=== PATIENT | female | born 1975 | race Caucasian/White ===

== ENCOUNTER 2016-03-18 14:07 | Emergency (ER) | payer MEDICAID, OTHER ==
[~2016-03-18] VITALS: Ht 160 cm; Wt 121.0 kg
[~2016-03-18 14:07] MED LIST: ATOR40TA68 PO; CARB200T92; GLIP-95 PO; LISI2.5T59 PO; [UNRECOGNIZED DRUG - CODE]
[2016-03-18 14:12] VITALS: Ht 160 cm; Wt 121.0 kg
[2016-03-18] MEDS ORDERED: LORAZEPAM 1 MG TAB PO ONE (17:00)
[2016-03-18] MEDS ORDERED: IBUPROFEN 800 MG TAB PO ONE (17:00)
--- NOTE | 2016-03-18 17:02 | ERD ---
ER Documentation Chief Complaint Date/Time DATE: 03/18/16 TIME: 17:00 Chief Complaint PT with " my seizure warnigns":nose tingly, twitching of mouth since 0700 HPI Patient is a 40-year-old female with seizures and diabetes who presents with the feeling of a seizure. The patient has "facial seizures and twitching" and feels like she may have one today. She says "it feels like a warning sign". It started at 7 AM and it has persisted. She takes her phenobarbital and Tegretol regularly and did not take it today. She admits to a headache in the posterior portion of the right side of her head which was gradual in onset. Upon review of old medical records she has multiple visits to the ER for various complaints. ROS All systems reviewed and are negative except as per history of present illness. Medications Home Meds Reported Medications Glipizide* (Glipizide*) 10 Mg Tablet, 10 MG PO AC BREAKFAST, TAB 12/30/15 Lisinopril* (Lisinopril*) 2.5 Mg Tablet, 2.5 MG PO DAILY, #30 TAB 12/30/15 Atorvastatin* (Atorvastatin*) 40 Mg Tablet, 40 MG PO QHS, #30 TAB 12/30/15 Carbamazepine (Tegretol) 200 Mg Tablet, 6 TAB QHS 02/17/11 Phenobarbital (Phenobarbital) 97.2 Mg Tablet, 2 TAB QHS 02/17/11 Allergies Allergies: Coded Allergies: cefaclor (Verified Allergy, Mild, 12/30/15) PMhx/Soc History of Surgery: Yes (cholecystectomy, carpal tunnel, bilateral) Anesthesia Reaction: No Hx Neurological Disorder: Yes (seizures) Hx Respiratory Disorders: No Hx Cardiac Disorders: Yes (htn, high cholesterol) Hx Psychiatric Problems: No Hx Miscellaneous Medical Probl: Yes (diabetes) Hx Alcohol Use: Yes (occasionally) Hx Substance Use: No Hx Tobacco Use: Yes (sometimes) FmHx Family History: diabetes Physical Exam Vitals Vital Signs Date Time Temp Pulse Resp B/P Pulse Ox O2 Delivery O2 Flow Rate FiO2 03/18/16 14:12 98.3 86 18 138/90 97 Physical Exam Const: No acute distress Head: Atraumatic Eyes: Normal Conjunctiva ENT: Normal External Ears, Nose and Mouth. Neck: Full range of motion..~ No meningismus. Resp: Clear to auscultation bilaterally Cardio: Regular rate and rhythm, no murmurs Abd: Soft, non tender, non distended. Normal bowel sounds Skin: No petechiae or rashes Back: No midline or flank tenderness Ext: No cyanosis, or edema Neur: Awake and alert, no slurred speech, no weakness of the upper or lower extremities, no seizure activity Psych: Normal Mood and Affect Results 24 hrs Laboratory Tests Test 03/18/16 16:55 Bedside Glucose 200mg/dL Current Medications Medications (Trade) Dose Ordered Sig/Armando Route PRN Reason Start Time Stop Time Status Last Admin Dose Admin Lorazepam (Ativan) 1 mg ONCE ONCE PO 03/18/16 17:00 03/18/16 17:01 Ibuprofen (Motrin) 800 mg ONCE ONCE PO 03/18/16 17:00 03/18/16 17:01 Procedures/MDM Accu-Chek is 200. Patient is a 40-year-old female with diabetes and seizures who presents with a feeling of an aura. At this point the patient has no seizure activity. The patient is well-appearing with stable vital signs and normal neurologic exam. I doubt hypo-or hyperglycemia. I doubt diabetic ketoacidosis. The patient was given Ativan to prevent seizure as well as ibuprofen for headache. I doubt intracranial mass or hemorrhage and I believe the risks of doing a CT scan of the brain outweigh the benefits. I doubt stroke. The patient can return for any worsening symptoms. Departure Diagnosis: Primary Impression: Aura Additional Impression: Numbness Condition: Fair Patient Instructions: Seizure, Recurrent [Adult] Referrals: Your doctor Additional Instructions: Call your primary care doctor TOMORROW for an appointment during the next 1-2 days.See the doctor sooner or return here if your condition worsens before your appointment time. EZEQUIEL MCKENZIE MD Mar 18, 2016 17:02
== END 2016-03-18 17:23 | disposition home or self-care (01) ==
LOC: E/R 14:07
DX: G43.109 Migraine with aura, not intractable, without status migrainosus (principal); R20.0 Anesthesia of skin; I10 Essential (primary) hypertension; E11.9 Type 2 diabetes mellitus without complications; Z72.0 Tobacco use; Z79.84 Long term (current) use of oral hypoglycemic drugs
CPT/HCPCS: 82962; Z7610; 99283

== ENCOUNTER 2016-05-21 16:35 | Emergency (ER) | payer OTHER ==
[~2016-05-21] VITALS: Ht 162.6 cm; Wt 120.5 kg
[2016-05-21 16:54] VITALS: Ht 162.6 cm; Wt 120.5 kg
[2016-05-21] MEDS ORDERED: KETOROLAC 30 MG INJ IM STA (18:59)
[2016-05-21 19:06] LABS: URINE BLOOD (Dip) POC Negative (NEGATIVE)
[2016-05-21 19:15] LABS: URINE BLOOD (Dip) POC Negative (NEGATIVE)
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
[2016-05-21] MEDS ORDERED: IBUP-1542 PO (20:36)
[2016-05-21] MEDS ORDERED: HYDR-906 PO (20:36)
[2016-05-21 20:51] VITALS: BP 134/87; PULSE 60; RESP 18; TEMP 97.2
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
== END 2016-05-21 20:51 | disposition home or self-care (01) ==
LOC: FTE 16:35
DX: T14.8 Other injury of unspecified body region (principal); I10 Essential (primary) hypertension; E11.9 Type 2 diabetes mellitus without complications; R51 Headache; V43.52XA Car driver injured in collision with other type car in traffic accident, initial encounter; Z79.84 Long term (current) use of oral hypoglycemic drugs
CPT/HCPCS: 70450; 71010; 71100; 73000; 73030; 81003; J1885; 96372

== ENCOUNTER 2016-08-08 00:36 | Emergency (ER) | payer OTHER ==
[~2016-08-08] VITALS: Ht 162.6 cm; Wt 124.0 kg
[~2016-08-08 00:36] MED LIST changes: +HYDR-906 PO; +IBUP-1542 PO
[2016-08-08 00:55] VITALS: Ht 162.6 cm; Wt 124.0 kg
[2016-08-08 02:38] LABS: URINE BLOOD (Dip) POC 2+ (NEGATIVE)
[2016-08-08 04:19] LABS: ADD SCAN DIFF NO
[2016-08-08 04:22] LABS: BASOPHILS % 0.4 % (0.0-2.0); EOSINOPHILS # 0.2 10^3/ul (0.0-0.5); HEMATOCRIT 34.6 % (37.0-47.0); LYMPHOCYTES # 2.8 10^3/ul (0.8-2.9); LYMPHOCYTES % 32.8 % (15.0-51.0); MEAN CORPUSCULAR HEMOGLOBIN 30.5 pg (29.0-33.0); MEAN CORPUSCULAR HGB CONC 34.7 g/dl (32.0-37.0); MEAN CORPUSCULAR VOLUME 87.8 fl (82.0-101.0); MONOCYTE # 0.5 10^3/ul (0.3-0.9); MONOCYTES % 6.2 % (0.0-11.0); NEUTROPHILS % 58.4 % (39.0-77.0); PLATELET COUNT 194 10^3/UL (140-415); RED BLOOD COUNT 3.94 10^6/ul (4.20-5.40); RED CELL DISTRIBUTION WIDTH 12.1 % (11.5-14.5); WHITE BLOOD COUNT 8.5 10^3/ul (4.8-10.8)
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
[2016-08-08 04:35] LABS: INR 0.99; PROTIME 13.1 Sec (12.2-14.2)
[2016-08-08 04:36] LABS: PARTIAL THROMBOPLASTIN TIME 28.4 Sec (25.0-35.0)
[2016-08-08 04:37] LABS: ANION GAP 13 (8-16); BLOOD UREA NITROGEN 14 mg/dl (7-20); CALCIUM 8.8 mg/dl (8.4-10.2); CARBON DIOXIDE 27 mmol/L (21-31); CHLORIDE 109 mmol/L (97-110); CREATININE 0.64 mg/dl (0.44-1.00); GLUCOSE 87 mg/dl (70-220); POTASSIUM 3.6 mmol/L (3.5-5.1); SODIUM 145 mmol/L (135-144)
--- NOTE | 2016-08-08 04:48 | ERA ---
ER Documentation Chief Complaint Date/Time DATE: 08/08/16 Chief Complaint chest pain since 4 hours ago HPI The patient is a 40-year-old female, presenting to the ER because of minimal right-sided chest pain that began about 8 PM, worse with movement, intermittent , denies any chest pain now. She denies any fever, chills, cough, chest pain with exertion or vomiting or diaphoresis, dyspnea, abdominal pain, vomiting, dysuria. She does not smoke nor drink, denies any recent traveling, has a lot of stress in her life at this time. Past medical history: Diabetes mellitus, seizure disorder, hypertension Past surgical history: Bilateral carpal tunnel surgery, cholecystectomy ROS All systems reviewed and are negative except as per history of present illness. Medications Home Meds Active Scripts Ibuprofen* (Ibuprofen*) 600 Mg Tablet, 600 MG PO Q6H Y for PAIN, #20 TAB Prov:ÁLVARO KING MD 08/08/16 Sulfamethoxazole/Trimethoprim* (Bactrim Ds* Tablet) 1 Each Tablet, 1 TAB PO BID , #14 TAB Prov:ÁLVARO KING MD 08/08/16 Hydrocodone/Acetaminophen (Lamoni 5-325 Tablet) 1 Each Tablet, 1 TAB PO Q6H Y for PAIN, #10 TAB Prov:HERBERT MOORE 05/21/16 Ibuprofen* (Motrin*) 600 Mg Tab, 600 MG PO Q6H Y for PAIN AND OR ELEVATED TEMP, #30 TAB Prov:HERBERT MOORE 05/21/16 Reported Medications Glipizide* (Glipizide*) 10 Mg Tablet, 10 MG PO AC BREAKFAST, TAB 12/30/15 Lisinopril* (Lisinopril*) 2.5 Mg Tablet, 2.5 MG PO DAILY, #30 TAB 12/30/15 Atorvastatin* (Atorvastatin*) 40 Mg Tablet, 40 MG PO QHS, #30 TAB 12/30/15 Carbamazepine (Tegretol) 200 Mg Tablet, 6 TAB QHS 02/17/11 Phenobarbital (Phenobarbital) 97.2 Mg Tablet, 2 TAB QHS 02/17/11 Allergies Allergies: Coded Allergies: cefaclor (Verified Allergy, Mild, 12/30/15) PMhx/Soc History of Surgery: Yes (cholecystectomy, carpal tunnel, bilateral) Anesthesia Reaction: No Hx Neurological Disorder: Yes (seizures) Hx Respiratory Disorders: No Hx Cardiac Disorders: Yes (htn, high cholesterol) Hx Psychiatric Problems: No Hx Miscellaneous Medical Probl: Yes (diabetes) Hx Alcohol Use: No Hx Substance Use: No Hx Tobacco Use: No Smoking Status: Never smoker Physical Exam Vitals Vital Signs Date Time Temp Pulse Resp B/P Pulse Ox O2 Delivery O2 Flow Rate FiO2 08/08/16 05:17 59 16 104/62 100 Room Air 08/08/16 03:24 62 16 99/83 96 Room Air 08/08/16 03:23 Nasal Cannula 3 08/08/16 00:55 97.8 88 20 131/83 98 Physical Exam Const: No acute distress. Head: Atraumatic. Eyes: Normal Conjunctiva. ENT: Normal External Ears, Nose and Mouth. Neck: Full range of motion. No meningismus. Chest: Mild right-sided chest tenderness with palpation, no crepitus Resp: Clear to auscultation bilaterally. Cardio: Regular rate and rhythm. Abd: Soft, non distended, normal bowel sounds, non tender. Skin: No petechiae or rashes. Back: No midline or flank tenderness. Ext: No cyanosis, or edema. Neur: Awake and alert. No focal deficit Psych: Normal Mood and Affect. Result Diagram: 08/08/1641008/08/16410 Results 24 hrs Laboratory Tests Test 08/08/16 02:40 08/08/16 04:11 Bedside Urine pH (LAB) 6.5 Bedside Urine Protein (LAB) 2+ Bedside Urine Glucose (UA) 0.1% Bedside Urine Ketones (LAB) Trace Bedside Urine Blood 2+ Bedside Urine Nitrite (LAB) Positive Bedside Urine Leukocyte Esterase (L Negative White Blood Count 8.510^3/ul Red Blood Count 3.9410^6/ul Hemoglobin 12.0g/dl Hematocrit 34.6% Mean Corpuscular Volume 87.8fl Mean Corpuscular Hemoglobin 30.5pg Mean Corpuscular Hemoglobin Concent 34.7g/dl Red Cell Distribution Width 12.1% Platelet Count 55245^3/UL Mean Platelet Volume 10.0fl Neutrophils % 58.4% Lymphocytes % 32.8% Monocytes % 6.2% Eosinophils % 2.0% Basophils % 0.4% Nucleated Red Blood Cells % 0.0/100WBC Neutrophils # 5.010^3/ul Lymphocytes # 2.810^3/ul Monocytes # 0.510^3/ul Eosinophils # 0.210^3/ul Basophils # 0.010^3/ul Nucleated Red Blood Cells # 0.010^3/ul Prothrombin Time 13.1Sec Prothrombin Time Ratio 1.0 INR International Normalized Ratio 0.99 Activated Partial Thromboplast Time 28.4Sec Sodium Level 145mmol/L Potassium Level 3.6mmol/L Chloride Level 109mmol/L Carbon Dioxide Level 27mmol/L Anion Gap 13 Blood Urea Nitrogen 14mg/dl Creatinine 0.64mg/dl Glucose Level 87mg/dl Calcium Level 8.8mg/dl Troponin I < 0.012ng/ml Procedures/[place] [id number] Radiology Main Line: [phone] DIAGNOSTIC IMAGING REPORT Patient: OMERO MCCONNELL : 1975 Age: 40 Sex: F MR #: [id number] DOS: 08/08/16 [facility] Ordering MD: ÁLVARO KING MD Location: E/R Room/Bed: PROCEDURE: CHEST - 1 VIEW CLINICAL INDICATION: 40-year-old female with chest pain. TECHNIQUE: A single frontal AP upright portable view of the chest was performed. The images were reviewed on a PACS workstation. COMPARISON: Chest x-ray May 21, 2016 FINDINGS: The cardiomediastinal silhouette is mildly enlarged but without significant change. There is elevation right hemidiaphragm. There is mild right basilar subsegmental atelectasis. There is no evidence for an infiltrate. There is no evidence for congestive heart failure. There is no evidence for pneumothorax. The osseous structures are intact. IMPRESSION: 1. Mild cardiomegaly. 2. Elevated right hemidiaphragm. 3. Mild right basilar subsegmental atelectasis. .Brando Wyatt MD, MD Date Time Electronically viewed and signed by .Brando Wyatt MD, on 08/08/2016 04:33 .M/ CC: ÁLVARO KING MD EKG: Read by emergency physician Rate/Rhythm: Normal Sinus Rhythm 68 beats/min QRS, ST, T-waves: No ST elevation, no T inversion, nonspecific T abnormality Impression: Abnormal EKG MEDICAL MAKING DECISION: The patient is a 40-year-old female, presenting with acute chest pain most likely musculoskeletal pain, acute cystitis. She remained well emergency department and did not have any recurrent symptoms The differential diagnoses considered include but are not limited to acute coronary syndrome, acute myocardial infarction, pericarditis, pulmonary embolism , aortic dissection, pneumonia, pleural effusion, pneumothorax, GERD, chest wall pain. Departure Diagnosis: Primary Impression: Chest pain Additional Impression: UTI (urinary tract infection) Condition: Good Comments She was discharged with Bactrim DS and Motrin I discussed the findings with the patient. I advised the patient to follow-up with the primary physician in about 1-2 days, sooner if needed and return if any concern. ÁLVARO KING MD Aug 08, 2016 04:47
[2016-08-08 04:49] LABS: TROPONIN-I < 0.012 ng/ml (0.00-0.12)
[2016-08-08 05:17] VITALS: BP 104/62; PULSE 59; RESP 16
[2016-08-08] MEDS ORDERED: IBUP-1542 PO (05:23)
[2016-08-08] MEDS ORDERED: SULF1TAB31 PO (05:23)
== END 2016-08-08 05:32 | disposition home or self-care (01) ==
LOC: E/R 00:36
DX: R07.9 Chest pain, unspecified (principal); N39.0 Urinary tract infection, site not specified; E11.9 Type 2 diabetes mellitus without complications; I10 Essential (primary) hypertension; Z79.84 Long term (current) use of oral hypoglycemic drugs
CPT/HCPCS: 36415; 71010; 80048; 81003; 84484; 85025; 85610; 85730; Z7502; 93005

== ENCOUNTER 2016-11-09 19:33 | Emergency (ER) | payer OTHER ==
[~2016-11-09] VITALS: Ht 162.6 cm; Wt 122.7 kg
[~2016-11-09 19:33] MED LIST changes: +SULF1TAB31 PO
[2016-11-09 20:06] VITALS: Ht 162.6 cm; Wt 122.7 kg
[2016-11-09] MEDS ORDERED: CLIN-73 PO (21:18)
[2016-11-09] MEDS ORDERED: IBUP-1542 PO (21:18)
--- NOTE | 2016-11-09 21:28 | ERD ---
ER Documentation Chief Complaint Date/Time DATE: 11/09/16 TIME: 21:22 Chief Complaint LT 3RD FINGER PAIN/SWELLING FROM PULLING OUT A HANG NAIL ON WEDNESDAY. HPI 41-year-old in emergency department for complaints of swelling on the right side of left fourth finger nail after trying to remove a skin tag. Patient removed the skin, started to have redness and swelling afterwards. Patient describes the pain as sharp pain, 6/10 scale, was upon touching the area. Patient did not take any medications to help with symptoms. Patient denies any numbness or tingling. Patient denies any direct trauma in affected area. Patient is diabetic. ROS All systems reviewed and are negative except as per history of present illness. Medications Home Meds Active Scripts Ibuprofen* (Motrin*) 600 Mg Tab, 600 MG PO Q6H Y for PAIN AND OR ELEVATED TEMP, #30 TAB Prov:JULIETTE SANTACRUZ NP 11/09/16 Clindamycin Hcl* (Clindamycin Hcl*) 300 Mg Capsule, 300 MG PO TID for 10 Days, CAP Prov:JULIETTE SANTACRUZ NP 11/09/16 Ibuprofen* (Ibuprofen*) 600 Mg Tablet, 600 MG PO Q6H Y for PAIN, #20 TAB Prov:ÁLVARO KING MD 08/08/16 Sulfamethoxazole/Trimethoprim* (Bactrim Ds* Tablet) 1 Each Tablet, 1 TAB PO BID , #14 TAB Prov:ÁLVARO KING MD 08/08/16 Hydrocodone/Acetaminophen ([place] 5-325 Tablet) 1 Each Tablet, 1 TAB PO Q6H Y for PAIN, #10 TAB Prov:HERBERT MOORE 05/21/16 Ibuprofen* (Motrin*) 600 Mg Tab, 600 MG PO Q6H Y for PAIN AND OR ELEVATED TEMP, #30 TAB Prov:HERBERT MOORE 05/21/16 Reported Medications Glipizide* (Glipizide*) 10 Mg Tablet, 10 MG PO AC BREAKFAST, TAB 12/30/15 Lisinopril* (Lisinopril*) 2.5 Mg Tablet, 2.5 MG PO DAILY, #30 TAB 12/30/15 Atorvastatin* (Atorvastatin*) 40 Mg Tablet, 40 MG PO QHS, #30 TAB 12/30/15 Carbamazepine (Tegretol) 200 Mg Tablet, 6 TAB QHS 02/17/11 Phenobarbital (Phenobarbital) 97.2 Mg Tablet, 2 TAB QHS 02/17/11 Allergies Allergies: Coded Allergies: cefaclor (Verified Allergy, Mild, 11/09/16) PMhx/Soc History of Surgery: Yes (cholecystectomy, carpal tunnel, bilateral) Anesthesia Reaction: No Hx Neurological Disorder: Yes (seizures) Hx Respiratory Disorders: No Hx Cardiac Disorders: Yes (htn, high cholesterol) Hx Psychiatric Problems: No Hx Miscellaneous Medical Probl: Yes (diabetes) Hx Alcohol Use: No Hx Substance Use: No Hx Tobacco Use: No Smoking Status: Never smoker FmHx Family History: No coronary disease, No diabetes, No other Physical Exam Vitals Vital Signs Date Time Temp Pulse Resp B/P Pulse Ox O2 Delivery O2 Flow Rate FiO2 11/09/16 20:06 99.2 83 18 123/78 97 Physical Exam GENERAL: The patient is well developed and appropriate for usual state of health, in no apparent distress. CHEST: Clear to auscultation bilaterally. There are no rales, wheezes or rhonchi. HEART: Regular rate and rhythm. No murmurs, clicks, rubs or gallops. No S3 or S4. ABDOMEN: Soft, nontender and nondistended. Good bowel sounds. No rebound or guarding. No gross peritonitis. No gross organomegaly or masses. No Stuart sign or McBurney point tenderness. BACK: No midline or flank tenderness. EXTREMITIES: Equal pulses bilaterally. There is no peripheral clubbing, cyanosis or edema. No focal swelling or erythema. Full range of motion. Grossly neurovascularly intact. NEURO: Alert and oriented. Cranial nerves 2-12 intact. Motor strength in all 4 extremities with 5/5 strength. Sensation grossly intact. Normal speech and gait. SKIN: Redness and swelling on the right side of the left fourth finger nail. Swelling noted, no fluctuance noted. There is no apparent rash or petechia. The skin is warm and dry. HEMATOLOGIC AND LYMPHATIC: There is no evidence of excessive bruising or lymphedema. No gross cervical, axillary, or inguinal lymphadenopathy. Procedures/MDM Medical decision making: Patient symptoms most likely is consistent with paronychia. At this time, incision and drainage not indicated at this time. No symptoms of any neurovascular compromise. No trauma in affected area. Patient is diabetic, will be treated with antibiotics, was given clindamycin and ibuprofen, patient was advised to return to emergency department for any worsening symptoms. Follow-up with primary care doctor in 2 days for reevaluation of symptoms. Disposition: Home. Stable. Departure Diagnosis: Primary Impression: Paronychia Condition: Stable Patient Instructions: JULIETTE Olmos NP Nov 09, 2016 21:28
[2016-11-09 21:47] VITALS: BP 120/80; PULSE 66; RESP 20; TEMP 99.2
== END 2016-11-09 21:48 | disposition home or self-care (01) ==
LOC: FTE 19:33
DX: L03.012 Cellulitis of left finger (principal); I10 Essential (primary) hypertension; E11.9 Type 2 diabetes mellitus without complications; Z79.84 Long term (current) use of oral hypoglycemic drugs
CPT/HCPCS: 99283

== ENCOUNTER 2017-01-02 19:50 | Emergency (ER) | payer OTHER ==
[~2017-01-02] VITALS: Ht 165.1 cm; Wt 127.4 kg
[~2017-01-02 19:50] MED LIST changes: +CLIN-73 PO
[2017-01-02 19:53] VITALS: Ht 165.1 cm; Wt 127.4 kg
--- NOTE | 2017-01-02 20:55 | ERD ---
ER Documentation Chief Complaint Chief Complaint left eye pain/redness x 3 days HPI This 41-year-old female presents to emergency department for left lower eye lid erythema tender to palpation with green charge, denies change in vision injury, patient reports that she has been in and out of hospitals lately that her father is going through chemotherapy. Denies any known contacts with anyone being treated for conjunctivitis. ROS All systems reviewed and are negative except as per history of present illness. Medications Home Meds Active Scripts Sulfacetamide Sodium* (Bleph-10*) 10% - 3.5 Gm Opht Oint...g., 1 APPLIC LEFT EYE QID for 7 Days, #1 TUB Prov:BRENTONMARYALEXANDRA 01/02/17 Ibuprofen* (Motrin*) 600 Mg Tab, 600 MG PO Q6H Y for PAIN AND OR ELEVATED TEMP, #30 TAB Prov:JULIETTE SANTACRUZ NP 11/09/16 Clindamycin Hcl* (Clindamycin Hcl*) 300 Mg Capsule, 300 MG PO TID for 10 Days, CAP Prov:JULIETTE SANTACRUZ NP 11/09/16 Ibuprofen* (Ibuprofen*) 600 Mg Tablet, 600 MG PO Q6H Y for PAIN, #20 TAB Prov:ÁLVARO KING MD 08/08/16 Sulfamethoxazole/Trimethoprim* (Bactrim Ds* Tablet) 1 Each Tablet, 1 TAB PO BID , #14 TAB Prov:ÁLVARO KING MD 08/08/16 Hydrocodone/Acetaminophen (Piru 5-325 Tablet) 1 Each Tablet, 1 TAB PO Q6H Y for PAIN, #10 TAB Prov:HERBERT MOORE 05/21/16 Ibuprofen* (Motrin*) 600 Mg Tab, 600 MG PO Q6H Y for PAIN AND OR ELEVATED TEMP, #30 TAB Prov:HERBERT MOORE 05/21/16 Reported Medications Glipizide* (Glipizide*) 10 Mg Tablet, 10 MG PO AC BREAKFAST, TAB 12/30/15 Lisinopril* (Lisinopril*) 2.5 Mg Tablet, 2.5 MG PO DAILY, #30 TAB 12/30/15 Atorvastatin* (Atorvastatin*) 40 Mg Tablet, 40 MG PO QHS, #30 TAB 12/30/15 Carbamazepine (Tegretol) 200 Mg Tablet, 6 TAB QHS 02/17/11 Phenobarbital (Phenobarbital) 97.2 Mg Tablet, 2 TAB QHS 02/17/11 Allergies Allergies: Coded Allergies: cefaclor (Verified Allergy, Mild, 01/02/17) PMhx/Soc History of Surgery: Yes (cholecystectomy, carpal tunnel, bilateral) Anesthesia Reaction: No Hx Neurological Disorder: Yes (seizures) Hx Respiratory Disorders: No Hx Cardiac Disorders: Yes (htn, high cholesterol) Hx Psychiatric Problems: No Hx Miscellaneous Medical Probl: Yes (diabetes) Hx Alcohol Use: No Hx Substance Use: No Hx Tobacco Use: No Physical Exam Vitals Vital Signs Date Time Temp Pulse Resp B/P Pulse Ox O2 Delivery O2 Flow Rate FiO2 01/02/17 19:53 97 20 149/76 97 A vitals stable, triage notes reviewed Physical Exam Const: Well nourished, well appearing, obese 41-year-old female in no acute distress Head: Atraumatic, Eye Exam: Left eye 20/40, right eye 20/30, both eyes 20/25 without corrective lenses Visual Acuity: Visual [place]win: Intact in all four quadrants bilaterally Lac ducts/glands: Left eye lower eyelid with erythema, generalized swelling at the lateral canthus, lacrimal puncta patent, Lids w/ evertion: Normal, no foreign body Conj/[place]: Gentiva mildly injected clear, green crest noted at carbuncle ENT: Normal External Ears, Nose and Mouth. Neck: Resp: Cardio: Abd: Skin: Back: Ext: Neur: Awake and alert Psych: Normal Mood and Affect Procedures/MDM This 41-year-old female presents to emergency department for lower eyelid erythema, and green discharge, patient denies any injury, patient denies any change in vision, reports eyelid is tender to palpation, emergency room course includes history and physical exam, negative for orbital cellulitis, foreign body, or peritonitis. Plan to check visual acuity with a Snellen exam, left eye 20/40, right eye 20/30, both eyes 20/25 discharge patient with erythromycin ophthalmic 4 times daily 7 days, hygiene discussed, good handwashing and use of hand tree trimmer is recommended, patient instructed to wash crest from outer eye 2 times a day with 2 drops baby shampoo and 1 cup of water. Follow-up with primary care physician if symptoms fail to improve as anticipated, return to emergency department for increased eye pain, change in vision, or headaches. Patient is stable with no new complaints during ER course, clinically there is no current evidence to suggest detached retina, central retinal artery occlusion , periorbital infection, foreign body, glaucoma or any other emergent condition appearing to require further evaluation or hospitalization. I feel the patient is stable for discharge at this time. I have discussed results, examination findings, the treatment plan with the patient and family present prior to discharge. Indications for emergent reevaluation, side effects of medication were also discussed. All questions were answered. Patient verbalizes understanding and agrees with plan of care. Departure Diagnosis: Primary Impression: Blepharitis of left eye Blepharitis type: unspecified type Eyelid: lower Qualified Code: H01.005 - Blepharitis of left lower eyelid, unspecified type Patient Instructions: Treating Blepharitis: Medication and Follow-Up, Treating Blepharitis: Self-Care Referrals: [facility] Additional Instructions: Thank you for for coming to [facility] for your care today. Please ask your nurse or provider if you have questions about your care today and do not leave until all your questions have been answered. Please use any medications given as directed and follow-up with your doctor (or the doctor you were referred to) in the next 2-3 days. If you do not have a primary care doctor you may follow up at the [facility] (listed below). You may also use motrin and tylenol as needed for fever and/or pain unless instructed otherwise by your provider or nurse. Indications for more urgent follow-up have been discussed, but you may return to the Emergency Department at ANY time for any worrisome or worsening symptoms. If you have abdominal pain, please know that no test or exam you received is perfect and you should follow up within 8 hours for continued pain. If you had any imaging studies today, such as an X-Ray or CT Scan, these studies will be reviewed later by a radiologist. You will be called if there are important findings that were not identified today, so make sure the contact information you provided at registration is correct. If you received any narcotic pain control medicine today, such as Vicodin, Morphine or Dilaudid, your coordination and judgment may be affected for a number of hours. Please do not drive or operate heavy machinery, and you may want someone to assist you at home. If you were given a prescription for narcotic medication, be aware that it is very addictive- use sparingly and only if necessary. ALEXANDRA FARRIS Jan 02, 2017 20:55
[2017-01-02] MEDS ORDERED: SULF3.5O15 LEFT EYE (21:29)
== END 2017-01-02 21:35 | disposition home or self-care (01) ==
LOC: FTE 19:50
DX: H01.005 Unspecified blepharitis left lower eyelid (principal); I10 Essential (primary) hypertension; E11.9 Type 2 diabetes mellitus without complications; Z79.84 Long term (current) use of oral hypoglycemic drugs
CPT/HCPCS: 99283

== ENCOUNTER 2017-06-27 20:46 | Emergency (ER) | END 2017-06-27 23:31 | disposition home or self-care (01) ==

== ENCOUNTER 2017-09-29 16:12 | Emergency (ER) | END 2017-09-29 18:45 | disposition home or self-care (01) ==